=== PATIENT | male | born 1980 | race Hispanic/Latino ===

== ENCOUNTER 2018-07-09 21:22 | Emergency (ER) | payer OTHER ==
[2018-07-09 21:32] VITALS: BP 151/90; PULSE 75; RESP 20; TEMP 98.3; O2SAT 96
[2018-07-09] MEDS ORDERED: Lidocaine 1% w Epi 1:100,000 Inj INJ ONE (22:03)
[2018-07-09] MEDS ORDERED: Bacitracin 500 Units/gm Oint Foilpak UD TOP ONE (22:03)
[2018-07-09] MEDS ORDERED: Bacitracin 500 Units/gm Oint Foilpak UD ONE (22:07)
[2018-07-09] MEDS ORDERED: Amoxicillin-Clav 875-125 mg Tab PO STA (22:29)
--- NOTE | 2018-07-09 22:31 | C.PDOC ---
History Of Present Illness 37 y/o male presents to the ED complaining of a lip laceration sustained tonight. States he was playing basketball and got elbowed to the lower lip. Notes he had neck pain at the time, which is now improved. Patient continued playing for a little bit then came here for evaluation. Otherwise patient denies any nausea, vomiting, headache, dizzinesss, loc, or loose teeth. Tetanus is up to date. Time Seen by Provider: 07/09/18 21:59 Chief Complaint (Nursing): Abnormal Skin Integrity History Per: Patient History/Exam Limitations: no limitations Onset/Duration Of Symptoms: Hrs Current Symptoms Are (Timing): Still Present Past Medical History Reviewed: Historical Data, Nursing Documentation, Vital Signs Vital Signs: Last Vital Signs Temp 98.3 F 07/09/18 21:30 Pulse 75 07/09/18 21:30 Resp 20 07/09/18 21:30 BP 151/90 H 07/09/18 21:30 Pulse Ox 96 07/09/18 21:30 Family History: States: No Known Family Hx - Social History Hx Tobacco Use: No Hx Alcohol Use: No Hx Substance Use: No Review Of Systems Eyes: Negative for: Vision Change ENT: Negative for: Other (loose teeth) Gastrointestinal: Negative for: Nausea, Vomiting Musculoskeletal: Positive for: Neck Pain (now improved) Skin: Positive for: Lesions (to the right lower lip) Neurological: Negative for: Weakness, Change in Speech, Confusion, Headache, Dizziness Physical Exam - Physical Exam Appears: Non-toxic, No Acute Distress Skin: Warm, Dry Head: Normacephalic, No Swelling, No Laceration Eye(s): bilateral: Normal Inspection (no nystagmus), PERRL, EOMI Nose: Normal Oral Mucosa: Moist Lips: Laceration (1 cm laceration to the right lower lip on outside extends to the inner mucosa) Teeth: Normal Dentition, No Tender To Palpation, No Loose Gingiva: Normal Appearing Throat: Normal, No Erythema, No Exudate Neck: Normal ROM, No Midline Cervical Tenderness, No Paracervical Tenderness, Supple Chest: Symmetrical Cardiovascular: Rhythm Regular Respiratory: Normal Breath Sounds, No Accessory Muscle Use, Other (Speaking in full sentences) Neurological/Psych: Oriented x3, Normal Speech, Other (No focal deficits) ED Course And Treatment O2 Sat by Pulse Oximetry: 96 (RA) Pulse Ox Interpretation: Normal Progress Note: Offered imaging for neck, pt declined. Tylenol PO given for pain control. Laceration repaired with sutures without difficulty, tolerated well by patient. Bacitracin applied. Patient started on Augmentin, given initial dose in the ED. Counseled regarding wound care and follow-up instructions for suture removal. Reassessment Condition: Improved Laceration - Laceration Repair right lower lip: outside Wound Length (In cm): 1 Description Of Wound: Irregular Wound Cleansed With: Sterile Saline Anesthesia: Lidocaine 1%, With Epi Wound Examination: Irrigated With Saline, No FB With Wound Exploration, No Tendon Injury With Wound Exploration Wound Closure: Suture ( 2 sutures of 6:0 nylon) Suture Technique And Material Used: Nylon, Vicryl Wound Complexity: Intermediate inner mucosa right lower lip Wound Length (In cm): 1 Description Of Wound: Irregular Wound Cleansed With: Sterile Saline Anesthesia: Lidocaine 1%, With Epi Wound Examination: Irrigated With Saline, No FB With Wound Exploration, No Tendon Injury With Wound Exploration Wound Closure: Suture Suture Technique And Material Used: Interrupted, Vicryl (3 sutures of 5:0 Vicryl) Disposition Counseled Patient/Family Regarding: Diagnosis, Need For Followup, Rx Given - Disposition Disposition: HOME/ ROUTINE Disposition Time: 22:29 Condition: STABLE Additional Instructions: Wound check in 2 days. Suture removal in 5-7 days. Watch for signs of infection including redness, swelling and discharge. Take Tylenol or Motrin for the pain. Apply antibiotic ointment to the wound. Prescriptions: Amoxicillin/Clavulanate [Augmentin 875 MG-125 MG] 1 tab PO BID #14 tab Instructions: Laceration Repair With Stitches (DC) Forms: [employer] (Sinhala) - Clinical Impression Clinical Impression: Laceration of lip - PA / LAB SYSTEMS ANALYST / Resident Statement MD/DO has reviewed & agrees with the documentation as recorded. - Scribe Statement The provider has reviewed the documentation as recorded by the Scribe (Mary Pugh) All medical record entries made by the Scribe were at my direction and personally dictated by me. I have reviewed the chart and agree that the record accurately reflects my personal performance of the history, physical exam, medical decision making, and the department course for this patient. I have also personally directed, reviewed, and agree with the discharge instructions and disposition.
[2018-07-09] MEDS ORDERED: Amoxicillin-Clav 875-125 mg Tab PO ONE (22:43)
== END 2018-07-09 22:54 | disposition home or self-care (01) ==
LOC: C.ER 21:22
DX: S01.511A Laceration without foreign body of lip, initial encounter (principal); W50.0XXA Accidental hit or strike by another person, initial encounter; Y93.67 Activity, basketball